=== PATIENT | female | born 1970 | race Caucasian/White ===

== ENCOUNTER 2018-12-08 11:45 | Emergency (ER) | payer BC ==
[~2018-12-08] VITALS: Ht 175.3 cm; Wt 125.0 kg
[2018-12-08] MEDS ORDERED: DULO1CAP3 PO (12:00)
[2018-12-08] MEDS ORDERED: CARV6.25 PO (12:00)
[2018-12-08] MEDS ORDERED: ONDA4TAB6 PO (12:00)
[2018-12-08] MEDS ORDERED: LISINOP/HCTZ PO (12:00)
[2018-12-08] MEDS ORDERED: ASPI1TAB PO (12:00)
[2018-12-08] MEDS ORDERED: GI COCKTAIL 50ML BTL(HYOSCYAMINE/MAALOX/LIDOCAINE VISCOUS)(1:3:1) PO ONE (12:30)
[2018-12-08] MEDS ORDERED: NS 1,000 ML IV ONE ×2 (12:30→15:30)
[2018-12-08 12:49] LABS: BASO # 0.1 10^3/uL (0.0-0.2); BASO % 0.7 % (0.0-1.0); EOS # 0.1 10^3/uL (0.0-0.50); EOS % 1.7 % (0.0-3.0); HEMATOCRIT 37.1 % (36.0-47.0); HEMOGLOBIN 12.7 g/dl (12.0-15.5); LYMPH # 2.5 10^3/uL (1.5-4.5); LYMPH % 35.7 % (24.0-44.0); MEAN CORPUSCULAR HEMOGLOBIN 32.6 pg (27.0-33.0); MEAN CORPUSCULAR HGB CONC 34.2 g/dl (32.0-36.5); MEAN CORPUSCULAR VOLUME 95.1 fl (80.0-96.0); MONO # 0.4 10^3/uL (0.0-0.8); MONO % 5.7 % (0.0-5.0); NEUTROPHILS # 3.8 10^3/uL (1.8-7.7); PLATELET COUNT, AUTOMATED 244 10^3/uL (150-450); WHITE BLOOD COUNT 6.9 10^3/uL (4.0-10.0)
[2018-12-08 13:02] LABS: INR 1.03; PROTHROMBIN TIME 13.6 SECONDS (12.1-14.4)
[2018-12-08 13:03] LABS: PARTIAL THROMBOPLASTIN TIME 23.5 SECONDS (25.4-37.6)
[2018-12-08 13:07] LABS: HCG, SERUM QUALITATIVE NEGATIVE (NEGATIVE)
[2018-12-08 13:12] LABS: ERYTHROCYTE SEDIMENTATION RATE 41 mm/hr (0-20)
[2018-12-08 13:16] LABS: ALBUMIN 3.7 GM/DL (3.2-5.2); ALT/SGPT 57 U/L (12-78); BILIRUBIN,DIRECT < 0.1 MG/DL (0.0-0.2); BILIRUBIN,TOTAL 0.3 MG/DL (0.2-1.0); BLOOD UREA NITROGEN 14 MG/DL (7-18); C REACTIVE PROTEIN QUANTITATIV 1.32 MG/DL (0.00-0.30); CALCIUM LEVEL 8.9 MG/DL (8.5-10.1); CARBON DIOXIDE LEVEL 28 MEQ/L (21-32); CHLORIDE LEVEL 101 MEQ/L (98-107); CK-MB VALUE MASS < 1.0 NG/ML (<3.6); CPK CREATINE PHOSPHOKINASE 115 U/L (26-192); GLOMERULAR FILTRATION RATE 56.9 (>58); GLUCOSE, FASTING 103 MG/DL (70-100); LIPASE 89 U/L (73-393); MB/CK RELATIVE INDEX 0.87 (< OR =4); POTASSIUM SERUM 3.6 MEQ/L (3.5-5.1); SODIUM LEVEL 137 MEQ/L (136-145); TOTAL PROTEIN 7.9 GM/DL (6.4-8.2); TROPONIN I < 0.02 NG/ML (< 0.10)
[2018-12-08] MEDS ORDERED: ISOVUE-370 76% 100ML VIAL (Q9967) As Ordered ONE (13:23)
--- NOTE | 2018-12-08 13:31 | REP ---
Clinical: Acute chest pain . Comparison: None . Findings: The mediastinum and cardiac silhouette are within normal limits for portable technique. The lung anthony are clear without acute consolidation, effusion, or pneumothorax. Skeletal structures are intact. Impression: No acute cardiopulmonary process appreciated. Electronically Signed by Sonny Vanessa MD 12/08/2018 01:23 P
--- NOTE | 2018-12-08 14:57 | REP ---
Clinical: Right upper quadrant and epigastric pain. Technique: Axial contrast enhanced images from the lung bases to the pubic symphysis using 100 ml Isovue 370 intravenous contrast material with coronal and sagittal re-formations. Comparison: 10/07/2007. Findings: Lung bases are clear. Visualized heart and pericardium normal. Liver demonstrates diffuse fatty infiltration and stable 1.7 cm hemangioma in the posterior segment right lobe. Spleen, pancreas, bilateral adrenal glands and kidneys are normal. The patient is status post cholecystectomy. The enteric system is without obstruction or acute inflammatory process. Normal cecum and terminal ileum identified in the right lower quadrant along with evidence of prior appendectomy. Pelvis demonstrates normal bladder and evidence for prior hysterectomy. No ascites. No free air. No adenopathy. Abdominal aorta and vasculature without aneurysm or dissection. Surrounding musculoskeletal structures demonstrate age-related changes without focal osseous abnormality. Impression: 1. Hepatic steatosis and stable hepatic hemangioma. 2. Evidence of prior cholecystectomy, appendectomy, and hysterectomy. 3. No acute abdominopelvic pathology appreciated. Electronically Signed by Sonny Vanessa MD 12/08/2018 02:48 P
--- NOTE | 2018-12-08 14:59 | REP ---
CT pulmonary angiogram: With IV contrast. History: Rule out pulmonary embolus. Comparison studies: No comparison study. Contrast dose: 100 mL of Isovue [address] technique: Helical scanning is acquired and overlapping 1.5 mm and contiguous 3 mm axial images are reformatted. In addition, maximum intensity projection and multiplanar re-formation images are generated in sagittal and coronal imaging projections. CT pulmonary angiographic findings: There is good opacification of the pulmonary arterial tree and there is no CT evidence of pulmonary embolism. Maximum intensity projection images show no vessel cutoff or filling defect. There is no evidence of pleural or pericardial effusion. No hilar or mediastinal mass or adenopathy is observed. No bony destructive lesion is seen. The lung anthony show no evidence of infiltrate or significant pulmonary nodule. Incidental note is made of fatty infiltration of the liver. There is a 17 mm hypervascular lesion posteriorly in the right lobe of the liver high near the dome of the diaphragm most consistent with hemangioma. This is visible and unchanged when compared with the October 07, 2007 prior study. Impression: No CT evidence of pulmonary embolus. Fatty infiltration of the liver. 17 mm hemangioma of the liver unchanged from 2006. Otherwise no acute disease. Electronically Signed by Kane López MD 12/08/2018 07:30 P
[2018-12-08 18:24] LABS: CK-MB VALUE MASS < 1.0 NG/ML (<3.6); CPK CREATINE PHOSPHOKINASE 89 U/L (26-192); MB/CK RELATIVE INDEX 1.12 (< OR =4); TROPONIN I < 0.02 NG/ML (< 0.10)
[2018-12-08 19:05] VITALS: BP 121/72
--- NOTE | 2018-12-09 20:32 | ECGEPIP ---
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
--- NOTE | 2018-12-09 20:41 | ECGEPIP ---
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
== END 2018-12-08 19:06 | disposition home or self-care (01) ==
LOC: M ED 11:45
DX: R07.89 Other chest pain (principal); R06.02 Shortness of breath; R20.2 Paresthesia of skin; R42 Dizziness and giddiness; I10 Essential (primary) hypertension; Z87.19 Personal history of other diseases of the digestive system; Z86.711 Personal history of pulmonary embolism; Z88.5 Allergy status to narcotic agent; Z79.899 Other long term (current) drug therapy; Z79.82 Long term (current) use of aspirin
CPT/HCPCS: 71045; 71275; 74177; 80048; 80076; 82550; 82553; 83690; 84443; 84484; 84703; 85025; 85610; 85652; 85730; 86140; 93005; 93041; 94760; 99285; Q9967

== ENCOUNTER → 2019-12-02 | Outpatient (CLI) | payer BC ==
[~2019-12-02] MED LIST: ASPI81TA26 PO; CARV6.25 PO; DULO1CAP6 PO; LIDOCAINE 1% MDV 20ML VIAL As Ordered ONE; LISINOP/HCTZ PO; ONDA4TAB6 PO; SODIUM BICARBONATE 8.4% INJ 50MEQ 50 ML VIAL As Ordered ONE
[2019-12-02 12:47] VITALS: BP 130/72
--- NOTE | 2019-12-03 09:07 | REP ---
ATTEMPTED STEREOTACTIC NEEDLE BIOPSY PROCEDURE LEFT BREAST. HISTORY: Microcalcific grouping left breast inferior and medial quadrant. Comparison mammography [facility] September 30, 2019. PROCEDURE: The patient and her were interviewed and informed consent was obtained by PIERRE Hampton. Preliminary images were reviewed. The patient was taken to the mammography suite and placed initially in the craniocaudal view. Patient safety time-out was articulated and agreed upon. Saw Edge Fuser Circular stereotactic imaging was acquired in the craniocaudal projection and the microcalcific target was clearly identified. However, targeting demonstrated that the target grouping was too close to the image receptor to allow for the throw of the stereotactic biopsy needle. Accordingly, the patient was placed in a lateral medial projection and again the target grouping of microcalcifications was localized. Again, targeting demonstrated that the microcalcific grouping was too close to the image receptor to allow for safe throw of the needle. The same result was obtained when the patient was localized in a mediolateral projection. Accordingly, we are unable to accomplish the stereotactic needle biopsy despite visualization of the target. IMPRESSION: Unsuccessful stereotactic needle biopsy due to insufficient breast thickness from the table top to the target grouping to allow for safe deployment of the needle. A stereotactic needle biopsy in a prone biopsy table should be considered. Alternatively, needle localization and directed excisional biopsy could be performed. Electronically Signed by Kane López MD 12/03/2019 09:43 A
== END ==
LOC: M IRPRO 12:03
PROVIDERS: ATTEND Registered Nurse
DX: N63.20 Unspecified lump in the left breast, unspecified quadrant (principal)

== ENCOUNTER → 2020-02-15 | Outpatient (CLI) | payer BC ==
[~2020-02-15] MED LIST changes: -LIDOCAINE 1% MDV 20ML VIAL As Ordered ONE; -SODIUM BICARBONATE 8.4% INJ 50MEQ 50 ML VIAL As Ordered ONE
--- NOTE | 2020-02-15 13:31 | REP ---
FOCUSED LEFT BREAST SONOGRAPHY: HISTORY: Left breast hypoechoic lesion at 7:30-o'clock position, 4 cm from the nipple with possible calcifications. Does this correspond with mammographically seen calcs? Comparison mammography is from September 23, 2019 and September 30, 2019. Mammogram shows a microcalcific grouping in the left breast. SONOGRAPHIC FINDINGS: The 7-o'clock position of the left breast is interrogated sonographically. There is a 1.3 cm cyst at 7-o'clock position 4 cm from the nipple which appears benign. There is a 0.7 cm cyst at the 7-o'clock position 5 cm from nipple with a benign appearance as well. 2 cm from the nipple at 7-o'clock position, there is a heterogeneous, essentially isoechoic area of breast parenchyma. There are one or two areas of shadowing. I do not feel that we can determine whether this corresponds to the microcalcific grouping. Microcalcifications of this mammographic size are usually not visible sonographically. Electronically Signed by Kane López MD 02/15/2020 04:34 P
== END ==
LOC: M WHC 11:01
PROVIDERS: ATTEND Surgery
DX: R92.1 Mammographic calcification found on diagnostic imaging of breast (principal)

== ENCOUNTER → 2020-03-29 | Outpatient (CLI) | payer BC ==
[~2020-03-29] MED LIST changes: +FERR325T81 PO; +LISI20TA20 PO; +ULTR50TA8 PO
[2020-03-29 11:28] VITALS: BP 136/78
--- NOTE | 2020-03-29 12:50 | REP ---
SPECIMEN RADIOGRAPHY: Left breast: Five views. HISTORY: Left breast calcifications. Comparison mammography September 30, 2019. FINDINGS: Specimen radiography shows multiple specimens. On page one, there is one microcalcification visible in one of the specimens. On page three, there is another microcalcification. There is no other evidence of microcalcification in the removed specimen.
--- NOTE | 2020-03-29 14:17 | REP ---
STEREOTACTIC NEEDLE BIOPSY, STEREOTACTIC GUIDANCE: HISTORY: Left breast calcifications. FINDINGS: Stereotactic guidance is provided to Dr. Riley performed stereotactic needle biopsy procedure.
--- NOTE | 2020-03-29 14:27 | REP ---
DIGITAL DIAGNOSTIC UNILATERAL LEFT BREAST MAMMOGRAPHY WITH CAD: TWO VIEWS. HISTORY: Status post stereotactic needle biopsy procedure. Comparison mammography, September 30, 2019. FINDINGS: A previously placed marker clip is again noted in the 12-o'clock position of the left breast. Today's HydroMARK clip is located inferiorly and medially in the left breast 9 mm posterior to the microcalcifications.
--- NOTE | 2020-04-03 12:35 | ROOPDOC ---
[facility] Report Of Operation Report of Operation DATE OF PROCEDURE: 03/29/20 PREPROCEDURE DIAGNOSES: Left breast calcifications. POSTPROCEDURE DIAGNOSES: Left breast calcifications. PROCEDURE: Left breast stereotactic biopsy with clip placement. SURGEON: Filiberto Trent CHANGE ANALYST: ANESTHESIA: Local anesthetic was used. ESTIMATED BLOOD LOSS: Minimal COMPLICATIONS: None. REMARKS: Biopsy specimen did not contain targeted microcalcs. Clip was placed at the biopsy site which is just posterior to the target calcifications. There is no post biopsy hematoma seen on mammogram. DESCRIPTION OF PROCEDURE: Lidocaine 1% LOT [id number] Expiration 03/2023 Sodium Bicarbonate 8.4% LOT [id number] Expiration 03/2021 Hydromark clip Bx device: Stereotactic Mammotome Revolve Dual Vacuum- assisted Biopsy System 10 G Informed consent was obtained in the preop area. The most common risk and possible complications including bleeding, hematoma, bruising, infection, injury to surrounding structures were explained to the patient and she expressed understanding. Patient was taken to the procedure room and placed prone on the [employer] [facility] [place] Breast Biopsy table with the left breast hanging through the table aperture. Left breast was placed into Cranio-Caudal compression and Rn Surgical maya images were taken. Suspicious calcifications were identified on the maya images and target was set. CC approach from the bottom was chosen for this procedure. At this time, since we were able to confirm visibility of the suspicious calcifications and patient tolerated prone positioning allowing to proceed with the biopsy, appropriate time out was done stating patients name, date of , and the procedure to be performed. The left breast in CC compression was prepped in the usual fashion. Plain Lidocaine 1% and 8.4% sodium bicarbonate 10:1 mix was used to anesthetize the skin, the biopsy site and tissues along the anticipated biopsy tract. Small skin incision was made with blade number 11. Mammotome 10 G stereotactic breast biopsy device was inserted through the incision and advanced to the previously set coordinates marking the target lesion. Pre-fire imaging was taken to assure appropriate positioning. At this time, Mammotome 10 G breast biopsy device was fired and vacuum assisted biopsies were collected. The biopsy samples were investigated with Spark Imaging system and no calcifications were observed. Biopsy device was withdrawn and another clay maker view was obtained. The calcifications appeared just anterior to the biopsy site. Calcifications were re-targeted and another attempt of biopsy was done. Samples were collected again and investigated with Faxitron. There were no calcifications identified again. At this point, decision was made to not attempt additional biopsy sites because there was bleeding encountered and patient held ASA for less that 5 days. The obtained biopsy samples were then placed in the formaldehyde, marked with patients name and left breast biopsy site, and sent to pathology for evaluation. Hydromark clip was placed into the Mammotome biopsy device channel and deployed. Post-deployment imaging was done to assure appropriate clip deployment. Clip was noted in the left breast. At this point, paddle CC compression of the left breast was released and manual pressure was held to decrease harmonic effect and to assure hemostasis. No bleeding was noted upon removal of the pressure. Patient was slowly repositioned and placed into sitting position, and then assisted off the table. Post-biopsy mammogram of the left breast was obtained and showed clip in expected position Suspicious calcifications are just anterior to the clip. Postprocedural dressing was placed. Patient tolerated procedure well and was taken to the recovery unit in stable condition. Discharge instructions were discussed with the patient and she expressed understanding. FILIBERTO TRENT DO Apr 03, 2020 12:35
== END ==
LOC: M WHCPRO 09:04
PROVIDERS: ATTEND Surgery
DX: N60.12 Diffuse cystic mastopathy of left breast (principal); R92.1 Mammographic calcification found on diagnostic imaging of breast

== ENCOUNTER → 2020-04-08 | Outpatient (CLI) | payer BC | LOC: M LABSMTC 10:42 | PROVIDERS: ATTEND Anesthesiology | DX: Z01.818 Encounter for other preprocedural examination (principal); Z11.59 Encounter for screening for other viral diseases | CPT/HCPCS: C9803; U0003 ==

== ENCOUNTER 2020-04-11 09:20 | Day surgery (SDC) | payer BC ==
[~2020-04-11] VITALS: Ht 175.3 cm; Wt 140.2 kg
[~2020-04-11 09:20] MED LIST changes: -FERR325T81 PO; +HEPARIN SOD (PORCINE) 5000UNITS/ML VIAL (J1644 PER 1000UNITS) SQ ONE; +KETOROLAC 60MG 2ML VIAL As Ordered ONE; +LIDOCAINE 2% 100MG/5ML SDV (FOR ANES.) As Ordered ONE; +LR 1,000 ML IV ONE; +MIDAZOLAM INJ 2MG/2ML VIAL (J2250 PER 1MG) As Ordered ONE; +NS 1,000 ML IV ONE; +ONDANSETRON 4MG/2ML VIAL As Ordered ONE; -ULTR50TA8 PO; +ceFAZolin SOD 1 GM in D5W MINI-BAG PLUS 50 ML IV ONE; +ceFAZolin SOD 2 GM in IV 1 EA IV ONE; +dexameTHASONE 4 MG/ML 1ML VIAL (J1100 PER 1MG) As Ordered ONE; +fentaNYL 100 MCG/2 ML INJECTION (J3010) As Ordered ONE; +propofoL 200 MG/20 ML VIAL As Ordered ONE
[2020-04-11] MEDS ORDERED: FERR325T81 PO (10:04)
[2020-04-11] MEDS ORDERED: SEVOFLURANE INHAL SOLN 250 ML BTL As Ordered ONE (10:25)
[2020-04-11] MEDS ORDERED: SCOPOLAMINE 1MG TRANSDERMAL PATCH As Ordered ONE (10:34)
[2020-04-11] MEDS ORDERED: BUPIVACAINE HCL 0.25% 30ML VIAL As Ordered ONE (10:43)
[2020-04-11] MEDS ORDERED: LIDOCAINE 1% SDV 30ML VIAL As Ordered ONE (10:43)
[2020-04-11] MEDS ORDERED: SCOPOLAMINE 1MG TRANSDERMAL PATCH TOP ONE (10:45)
[2020-04-11] MEDS ORDERED: dexameTHASONE 4 MG/ML 1ML VIAL (J1100 PER 1MG) As Ordered ONE (11:08)
[2020-04-11] MEDS ORDERED: ACETAMINOPHEN 1000MG 100ML IV BTL (OFIRMEV) (J0131 PER 10MG) As Ordered ONE (11:12)
[2020-04-11] MEDS ORDERED: METOCLOPRAMIDE INJ 10MG/2ML VIAL (J2765 PER 1) As Ordered ONE (11:17)
[2020-04-11] MEDS ORDERED: HYDROmorphone HCL 2 MG/ML 1ML VIAL (J1170) As Ordered ONE (11:39)
[2020-04-11] MEDS ORDERED: ULTR50TA8 PO (13:26)
[2020-04-11] MEDS ORDERED: fentaNYL 100 MCG/2 ML INJECTION (J3010) IV PRN (13:30)
[2020-04-11] MEDS ORDERED: MEPERIDINE INJ 25 MG/ML VIAL (J2175) IV PRN (13:30)
[2020-04-11] MEDS ORDERED: METOCLOPRAMIDE INJ 10MG/2ML VIAL (J2765 PER 1) IV PRN (13:30)
[2020-04-11] MEDS ORDERED: LR 1,000 ML IV SCH (13:30)
[2020-04-11] MEDS ORDERED: PERCOCET 5MG/325MG TAB PO PRN (13:30)
[2020-04-11] MEDS ORDERED: ONDANSETRON 4MG/2ML VIAL IV PRN (13:30)
--- NOTE | 2020-04-11 13:48 | REP ---
FOCUSED LEFT BREAST ULTRASOUND: HISTORY: Left breast microcalcifications. FINDINGS: Sonographic guidance is provided to Dr. Riley who performed needle localization procedure. Electronically Signed by Kane López MD 04/11/2020 04:00 P
[2020-04-11] MEDS: LABETALOL 100MG/20ML VIAL IV SCH ×3 (15:00→15:15)
[2020-04-11] MEDS ORDERED: LABETALOL 100MG/20ML VIAL As Ordered ONE (15:00)
[2020-04-11 15:15] VITALS: BP 168/74
[2020-04-11 16:31] VITALS: BP 141/70
--- NOTE | 2020-04-11 17:33 | ROOPDOC ---
[facility] Report Of Operation Report of Operation DATE OF PROCEDURE: 04/11/20 PREPROCEDURE DIAGNOSES: Left breast suspicious calcifications unable to be samples with the stereotactic biopsy POSTPROCEDURE DIAGNOSES: Left breast suspicious calcifications unable to be samples with the stereotactic biopsy PROCEDURE: Left breast excisional biopsy with intraop wire placement SURGEON: Filiberto Trent BASE PLY HAND: ANESTHESIA: general ESTIMATED BLOOD LOSS: Approximately 5 mL. COMPLICATIONS: none REMARKS: target calcifications are seen in the specimen along with the wire and the clip DESCRIPTION OF PROCEDURE: INDICATIONS: Ms. Paulson is a 49-year-old woman who was found to have suspicious left breast calcifications on screening mammogram. One attempted upright left breast stereotactic biopsy was tried but it was not done due technical reasons. Prone table left breast stereotactic biopsy was done and clip was placed however unfortunately calcifications moved and were not able to be sampled despite second attempt. Decision to do excisional biopsy with intraop wire placement was made. She was medically cleared for surgery by her primary care doctor. Risks and possible complications of surgical procedure including bleeding, infection and injury to surrounding structures were explained to the patient and she wished to proceed. Consent was signed. My initials were placed on the operative site. Subcutaneous injection of 5000 units of heparin was done in Preop. DETAILS: Patient was taken to the operating room and placed on the operating room table. A sign in was called stating patients name, date of and the procedure to be done. Preoperative antibiotics were infused. Smooth induction of general anesthesia was done. Patients hands were extended on arm rests. Care was taken not to over extend the arms. Procedure was started with left breast intraop wire localization. Appropriate time out was done and patients name, date of , and the procedure to be d one were confirmed. Left breast was cleaned by me. Intraoperative ultrasound was used again to confirm location of the Hydromark clip. Location of the clip was marked on the skin as well. 21 G Kopans Breast Lesion Localization Needle was used to place 25 cm wire. The wire was placed next to the clip and the end of the wire was passed slightly distal to the clip. The images were captured confirming adequate placement of the localizing wire. Can Slider assisted with the wire placement. Next, patients left breast and axilla were prepped and draped in the usual fashion. Care was taken not to displace the wire. Appropriate time out was done again prior second part of the procedure. Patients name, date of , and the procedure to be done were confirmed. Next, local anesthetic using 1% lidocaine and 0.25 % Marcaine 50/50 mix was injected at the site of planned periareolar incision. The incision was made with the scalpel. Subcutaneous skin flaps were raised and the guide wire was carefully pulled into the wound. Dissection was carries along the wire until the previously marked on the skin area of target lesion location was encountered. At this point, wider excision of the tissue surrounding the wire was done. The Hydromark clip was identified in the tissue with intraoperative hockey stick ultrasound probe. The end of the wire was identified with palpation. The excisional biopsy specimen was carefully removed from the breast keeping its proper orientation and moved to the back table where margins were marked with the surgical inking kit following the standard colors recommendations. Specimen was then placed on the grid and placed in Catapulter Specimen Imaging System. The image revealed the wire, the Hydromark and the suspicious calcifications in the specimen. The specimen was labeled with patients name and left excisional biopsy and sent to pathology. At this time radiology department was called to aid with evaluation of excised specimen. No additional excision was recommended. The calcifications were confi rmed to be from the target lesion. Next, the wound was irrigated thoroughly and adequate hemostasis was assured. Additional local anesthetic was injected into surrounding tissues. space was approximated with 3-0 Vicryl. The dermis was closed with 3-0 Monocryl and skin was closed with 4-0 Monocryl. Surgical glue was placed over the incision. Patient emerged from the anesthesia without any problems. Fluffs were placed over the operative site and patients chest was wrapped snuggly in the SUNDAR wrap. Sponge and instrument counts were done and were correct. Patient tolerated procedure well and was taken to recovery unit in stable condition. FILIBERTO TRENT DO Apr 11, 2020 17:33
--- NOTE | 2020-04-12 10:09 | REP ---
SPECIMEN RADIOGRAPHY LEFT BREAST: Single view. HISTORY: Left breast biopsy with wire placement. Comparison mammography March 29, 2020. FINDINGS: Specimen radiography demonstrates a Kopans-type localizer wire in the specimen. Adjacent to the wire is a HydroMARK type marker clip. Adjacent to the clip and the wire are several tiny punctate microcalcifications. Findings were discussed by telephone with the referring provider during the procedure. Electronically Signed by Kane López MD 04/12/2020 10:55 A
== END 2020-04-11 16:45 | disposition home or self-care (01) ==
LOC: M SDC 09:20
PROVIDERS: ATTEND Surgery
DX: N60.82 Other benign mammary dysplasias of left breast (principal); N60.22 Fibroadenosis of left breast; N64.4 Mastodynia; I10 Essential (primary) hypertension; F32.9 Major depressive disorder, single episode, unspecified; F41.9 Anxiety disorder, unspecified; Z86.711 Personal history of pulmonary embolism; Z79.82 Long term (current) use of aspirin; E66.01 Morbid (severe) obesity due to excess calories; M79.7 Fibromyalgia; Z88.5 Allergy status to narcotic agent
CPT/HCPCS: 19125; 36415; 76942; 86850; 86900; 86901; 88307; J0131; J0690; J1100; J1170; J1644; J1885; J2250; J2405; J2765; J3010